=== PATIENT | female | born 1995 | race Caucasian/White ===

== ENCOUNTER 2021-09-18 07:20 | Inpatient (IN) ==
[2021-09-18] MEDS ORDERED: OXYTOCIN 30 UNITS/500 ML BAG IV PRN ×2 (10:48→19:32)
--- NOTE | 2021-09-18 11:09 | History & Physical Report ---
Date of Service September 18, 2021 Assessment & Plan (1) Supervision of normal intrauterine in multigravida: Plan: Mallory is a 26-year-old currently at 40 weeks 6 days gestational age presents in labor. Patient strongly desires and has previously signed consent form and which she reported understanding. We reiterated the risks of a /TOLAC most significantly the risk of uterine rupture at approximately 1%. discussed the range of uterine rupture that can present including a slight dehiscence of to a full uterine separation resulting and extrusion of the baby and placenta. Discussed that the more severe form of this would results in se jordan and maternal harm and potential . Questions answered patient's satisfaction. Strongly recommended epidural so that a urgent scan be performed more quickly if needed. fetus appears normal size on exam. 1. Fetus: Cat 1 2. Labor: Progressing 3. GBS negative 4. /TOLAC: Consent signed and risks reviewed 5. Vitals: WNL (2) Desires (vaginal after ) trial: History of Present Illness Primary Care Provider: NO PCP Mallory is a 26-year-old [id number] currently at 40 weeks 6 days gestational age presents in labor. Patient reporting contractions increasing in frequency and intensity. Denies leakage of fluid or vaginal bleeding. Of note patient has a prior Caesarean section for failure to descend after pushing for 3 hours. Patient strongly desires and previously signed consent form on 06/28/21. risks of once again reviewed today and discussed the risk of uterine rupture at approximately 1%. Discussed the range of types of rupture including catastrophic rupture which can result in severe harm in as well as maternal harm and . Patient reports that she signed the consent form and reiterated understanding of the consent form. Allergies Allergy/AdvReac Type Severity Reaction Status Date / Time No Known Allergies Allergy Verified 09/16/21 09:47 Home Medications Medication Instructions Recorded Confirmed Type prenat.vits,laura,ysd-yzlo-mhyuo 1 tab PO DAILY 01/28/21 09/18/21 History tdsvwqkbok-hinlaxyebqoph-wmadgamt 1 cap PO Q6H PRN #10 cap 08/09/21 09/18/21 Rx 50 mg-300 mg-40 mg capsule (Fioricet) ondansetron HCl 4 mg tablet 4 mg PO Q6H PRN #14 tab 08/09/21 09/18/21 Rx Patient History Medical History Classic migraine with aura History of COVID-19 04/2021>MODERATE SYMPTOMS *RESOLVED Surgical History Hx of section X 1 [place] teeth removed Family History (Updated 09/18/21 @ 07:27 by Ileana Mcclendon RN) Grandfather (Maternal) Family history of diabetes mellitus Grandfather (Paternal) Family history of diabetes mellitus Stroke Other Coronary heart disease Diabetes Dyslipidemia Hypertension No family history of adverse response to anesthesia Social History (Updated 01/28/21 @ 13:22 by Domonique Roblero) Smoking Status: Never smoker Second Hand Exposure: Yes (as a child); Hx Alcohol Use: No Hx Substance Use: No Preferred Language: [place] Communication Ability: Effective 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: No Beliefs That Will Affect Care: None marital status: marital status details: Tim (29) [phone] Current Living Situation: Spouse and Family Current Living Situation Comment: and 4 y/o daughter current occupational status: employed 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, Other Information That Helps Us Care for You: No Feels Safe at Home: Yes Safety Concerns: Feels Safe At This Time Assistive Devices: Glasses Physical Exam Genitourinary: normal external appearance OB Exam Abdomen: + vertex Manual OB Exam: + cervical dilation 4 cm, + cervical effacement 80% and + station -2 OB Exam Monitor Tracing: + external FHT monitor used, + external uterine monitor used, + category I and + normal FHT variability; no early decelerations present, no late decelerations present and no variable decelerations Results & Data ([facility] [place]) Vital Signs (Past 12 Hours) Vital Signs Temp Pulse Resp BP 09/18/21 10:55 104 H 134/87 09/18/21 07:38 98 H 117/79 09/18/21 07:30 36.9 C 18 Coding Level of Care Code None Diagnoses Supervision of normal intrauterine in multigravida Z34.80 Desires (vaginal after ) trial O34.219
[2021-09-18] MEDS: LACTATED RINGER'S 1,000 ML IV PRN ×2 (11:25→12:26)
[2021-09-18 11:36] LABS: Hematocrit (blood only) 36.7 % (37-47); Mean Corpuscular Hemoglobin 29.4 pg (25-34); Mean Corpuscular Hgb Conc 32.7 g/dL (32-36); Platelet Count 216 K/uL (130-400); RDW Coefficient of Variation 14.9 % (11.5-14.5); RDW Standard Deviation 48.6 fL (36.4-46.3); Red Blood Count 4.08 M/uL (4.2-5.4); White Blood Count 13.66 K/uL (4.8-10.8)
[2021-09-18] MEDS ORDERED: SODIUM CHLORIDE 0.9% INJ 10 ML VIAL ONE (11:41)
[2021-09-18] MEDS ORDERED: fentaNYL citrate 100 MCG/2 ML VIAL ONE (11:41)
[2021-09-18] MEDS ORDERED: ePHEDrine sulfate 50 MG/ML AMP ONE (11:41)
[2021-09-18] MEDS ORDERED: fentaNYL 2MCG/ML ROPIVACAINE 1.25MG/ML 100 ML BAG EPI ONE (11:42)
[2021-09-18] MEDS ORDERED: BUPIVACAINE 0.25% 30 ML VIAL ONE (11:42)
--- NOTE | 2021-09-18 12:56 | Labor Progress Brief Note ---
Date of Service September 18, 2021 Assessment & Plan (1) Supervision of normal intrauterine in multigravida: Plan: Mallory is a 26-year-old currently at 40 weeks 6 days gestational age presents in labor. Patient strongly desires and has previously signed consent form and which she reported understanding. We reiterated the risks of a /TOLAC most significantly the risk of uterine rupture at approximately 1%. discussed the range of uterine rupture that can present including a slight dehiscence of to a full uterine separation resulting and extrusion of the baby and placenta. Discussed that the more severe form of this would results in se jordan and maternal harm and potential . Questions answered patient's satisfaction. Strongly recommended epidural so that a urgent scan be performed more quickly if needed. fetus appears normal size on exam. 1. Fetus: Cat 1 2. Labor: Progressing well, AROM clr 3. GBS negative 4. /TOLAC: Consent signed and risks reviewed 5. Vitals: WNL (2) Desires (vaginal after ) trial: Admission and Anticipated Discharge Date Admission Date: September 18, 2021 Physical Exam Genitourinary: Manual OB Exam: + cervical dilation (5.5), + cervical effacement 80%, + station 0 and + amniotic fluid clear OB Exam Monitor Tracing: + external FHT monitor used, + external uterine monitor used, + category I and + normal FHT variability; no early decelerations present, no late decelerations present and no variable decelerations Results & Data ([facility]) Vital Signs (Past 12 Hours) Vital Signs Temp Pulse Resp BP Pulse Ox 09/18/21 12:51 94 H 100 09/18/21 12:48 111 H 127/74 09/18/21 12:46 85 100 09/18/21 12:41 77 100 09/18/21 12:40 98 H 126/75 09/18/21 12:36 84 99 09/18/21 12:34 90 131/76 09/18/21 12:31 88 98 09/18/21 12:30 92 H 130/75 09/18/21 12:26 88 99 09/18/21 12:24 88 133/71 09/18/21 12:22 88 132/71 09/18/21 12:21 90 100 09/18/21 12:20 81 127/73 09/18/21 12:18 88 129/73 09/18/21 12:16 95 H 135/73 100 09/18/21 12:14 88 135/88 09/18/21 12:11 83 134/80 100 09/18/21 12:06 84 100 09/18/21 12:00 36.6 C 09/18/21 10:55 104 H 134/87 09/18/21 07:38 98 H 117/79 09/18/21 07:30 36.9 C 18 Coding Level of Care Code None Diagnoses Supervision of normal intrauterine in multigravida Z34.80 Desires (vaginal after ) trial O34.219
[2021-09-18] MEDS ORDERED: fentaNYL 2MCG/ML ROPIVACAINE 1.25MG/ML 100 ML BAG EPI PRN (14:23)
[2021-09-18] MEDS ORDERED: ePHEDrine sulfate 50 MG/ML AMP IV PRN (14:23)
[2021-09-18] MEDS ORDERED: NALOXONE HCL 1 MG in SODIUM CHLORIDE 0.9% 1000ML 1,000 ML IV PRN (14:23)
[2021-09-18] MEDS ORDERED: ONDANSETRON INJ 2 MG/ML 2 ML VIAL IV PRN (14:23)
[2021-09-18] MEDS ORDERED: NALBUPHINE HCL INJ 10 MG/ML AMP IV PRN (14:23)
[2021-09-18] MEDS ORDERED: NALOXONE HCL 0.4 MG/1 ML VIAL/CARP IV PRN (14:23)
[2021-09-18] MEDS ORDERED: diphenhydrAMINE 50 MG/ML VIAL IV PRN (14:23)
--- NOTE | 2021-09-18 14:25 | Anesthesiology Consultation ---
Date of Service September 18, 2021 Assessment & Plan ASA ASA3 Proposed Anesthesia Anesthesia Type: Labor Epidural Risk / Benefits Reviewed With: PT / POA / Parent / Guardian, Accepts Plan and Informed Consent Obtained History Height/Weight Height: 5 ft 4 in Weight: 94.347 kg Allergies Allergy/AdvReac Type Severity Reaction Status Date / Time No Known Allergies Allergy Verified 09/16/21 09:47 Medications Home Medications Medication Instructions Recorded Confirmed Last Taken prenat.vits,laura,jzc-nkoh-zfrir 1 tab PO DAILY 01/28/21 09/18/21 09/17/21 08:00 bcqcflzisv-gxnkslhyedewm-vszftnwv 1 cap PO Q6H PRN #10 cap 08/09/21 09/18/21 Unknown 50 mg-300 mg-40 mg capsule (Fioricet) ondansetron HCl 4 mg tablet 4 mg PO Q6H PRN #14 tab 08/09/21 09/18/21 Unknown Active Medications Generic Name Dose Route Start Last Admin Trade Name Freq PRN Reason Stop Dose Admin Lactated Ringer's 1,000 mls @ 125 mls/hr 09/18/21 10:48 09/18/21 12:26 Lr IV 09/20/21 10:47 999 mls/hr .Q8H PRN Administration L&D Protocol Protocol Past Medical History Medical History Classic migraine with aura History of COVID-19 04/2021>MODERATE SYMPTOMS *RESOLVED Exercise / Class Metabolic Activity II 4-5 Yardwork/Stairs/Walk up hill Past Family History Family History (Updated 09/18/21 @ 07:27 by Ileana Mcclendon RN) Grandfather (Maternal) Family history of diabetes mellitus Grandfather (Paternal) Family history of diabetes mellitus Stroke Other Coronary heart disease Diabetes Dyslipidemia Hypertension No family history of adverse response to anesthesia Past Surgical History Surgical History Hx of section X 1 [place] teeth removed Past Anesthesia History No Hx of Anesthesia Complications and No Family Hx of Anesthesia Complications History of PONV No Hx of PONV and No Hx of Motion Sickness Social History Smoking Status: Never smoker Hx Alcohol Use: No Hx Substance Use: No substance use type: does not use Review of Systems denies fever/cough/ colds/ chest pain/ SOB/ DANIAL denies DANIAL Physical Exam Vital Signs Last Vital Signs Temp 36.7 C 09/18/21 14:13 Pulse 80 09/18/21 14:21 Resp 18 09/18/21 14:13 BP 138/79 09/18/21 14:11 Pulse Ox 97 09/18/21 14:21 ENMT Mouth: no TMJ abnormality and no dentition abnormality Thyromental Distance: > or= 3.5 Finger Breadths Mallampati Class: II Neck neck extension not limited Respiratory normal respiratory effort; no respiratory distress Auscultation: lungs clear to auscultation bilaterally Cardiovascular Rate/Rhythm: regular rate and regular rhythm Neurologic moves all extremities Psychiatric Orientation: alert and oriented x 3 Testing Laboratory Results 09/18/21 11:12 Blood Type A Positive 09/18/21 11:12 Antibody Screen NEGATIVE 09/18/21 11:12
--- NOTE | 2021-09-18 18:17 | Communication Note ---
Date of Service: September 18, 2021 pt c/o pain on left side and back. i bolused 6ml of 2% lidocaine with epi. pt vss. pt reports improvement in pain
[2021-09-18] MEDS ORDERED: miSOPROStoL 200 MCG TAB ONE (19:26)
[2021-09-18] MEDS ORDERED: METHYLERGONOVINE MALEATE 0.2 MG/ML AMP ONE (19:29)
[2021-09-18] MEDS ORDERED: bisacodyL 10 MG SUPP PR PRN (19:32)
[2021-09-18] MEDS ORDERED: miSOPROStoL 200 MCG TAB PR ONE (19:32)
[2021-09-18] MEDS ORDERED: HYDROCORTISONE ACETATE 25 MG SUPP PR PRN (19:32)
[2021-09-18] MEDS ORDERED: ACETAMINOPHEN 325 MG TAB PO PRN (19:32)
[2021-09-18] MEDS ORDERED: METHYLERGONOVINE MALEATE 0.2 MG/ML AMP IM ONE (19:32)
[2021-09-18] MEDS ORDERED: DIPHTHERIA/TETANUS/PERTUSSIS 0.5 ML SYR/VIAL IM ONE (19:32)
[2021-09-18] MEDS ORDERED: BENZOCAINE 20% AER SPR 82.5 GM CAN EXT PRN (19:32)
[2021-09-18] MEDS: IBUPROFEN 600 MG TAB PO PRN (21:48)
[2021-09-18] MEDS: DOCUSATE SODIUM 100 MG CAP PO SCH (21:49)
--- NOTE | 2021-09-18 22:57 | Anesthesia Procedure Note ---
Date of Service September 18, 2021 Anesthesia Post Epidural Note Vital Signs Vital Signs: Temp Pulse Resp BP Pulse Ox 37.0 C 90 18 122/72 99 09/18/21 19:07 09/18/21 21:29 09/18/21 21:30 09/18/21 21:29 09/18/21 19:07 Pain Intensity Abdomen: Pain Intensity: 6 Notes Mental Status: alert / awake / arousable Nausea / Vomiting: adequately controlled Pain: adequately controlled Airway Patency, RR, SpO2: stable & adequate BP & HR: stable & adequate Hydration State: stable & adequate Neuraxial Anesthesia: was administered and sensory block is resolving Anesthetic Complications: no major complications apparent and Pt Satisfied with anesthetic care Epidural: Removed without complications and With tip intact
--- NOTE | 2021-09-18 23:05 | Delivery Summary ---
DATE OF SERVICE: 09/18/2021 PROCEDURE: 1. Vaginal after section. 2. First-degree perineal laceration repair and bilateral periurethral laceration repairs. SURGEON: Nemesio Beavers MD. PREOPERATIVE DIAGNOSES: 1. Term at 40 weeks 6 days gestational age. 2. Prior section x1. 3. Desires trial of labor after section. POSTOPERATIVE DIAGNOSES: 1. Term at 40 weeks 6 days gestational age. 2. Prior section x1. 3. Desires trial of labor after section. 4. Status post delivery. ESTIMATED BLOOD LOSS: 400 mL. DRAINS: Straight cath at the completion of the case. URINE OUTPUT: 200 mL via straight cath. COMPLICATIONS: None. FINDINGS: Viable female infant with weight pending and Apgars of 8 and 8 at one and five minutes res pectively. INDICATIONS: Mallory is a 26-year-old G2, P1-0-0-1, at 40 weeks 6 days gestational age, presented in labor, desiring trial of labor after section. The patient was previously consented for and risks were reiterated prior to admission today. The patient progressed in labor well without an y augmentation. She did undergo artificial rupture of membranes for clear fluid and received an epid ural for anesthesia. The patient progressed to complete-complete, +1 station and began to push and p ushed for approximately 40-60 minutes to achieve delivery. DESCRIPTION OF PROCEDURE: The patient progressed to 10 cm dilated, 100% effaced, positive 1 station, pushed over intact perineum with epidural anesthesia and delivered a viable female , with weig ht and Apgars as noted above. Head of the delivered in SOUTH position, restituted to right tra nsverse. No nuchal cord noted. Body and shoulders quickly followed. was noted to have mode rate tone, but did not have spontaneous cry after delivery. The baby was stimulated and after about 30 seconds, the cord was double clamped and cut, and shortly afterwards, the baby became vigorous. C ord segment and cord blood were obtained. Attention was then turned to delivery of the placenta, whi ch was delivered intact, 3-vessel cord, gentle cord traction. On inspection of the perineum, vagina, cervix, there was noted to be a first-degree perineal laceration and bilateral periurethral lacerati ons. The perineal laceration was repaired with continuous running locked stitch of 3-0 Vicryl. Bila teral periurethrals were repaired with 3-0 Vicryl in an interrupted stitch. Needle, sponge, and inst rument counts were correct at the completion of the case. Both mother and are stable in the immediate post-delivery period. The patient received 800 mcg of Cytotec per rectum and one dose of M ethergine due to intermittent uterine atony after the delivery. Job ID: [id number]
[2021-09-19 06:29] LABS: Hematocrit (blood only) 30.9 % (37-47); Hemoglobin 10.1 g/dL (12.0-16.0); Mean Corpuscular Hgb Conc 32.7 g/dL (32-36); Mean Corpuscular Volume 88.8 fL (80-100); Mean Platelet Volume 9.6 fL (7.4-10.4); Platelet Count 181 K/uL (130-400); RDW Coefficient of Variation 15.1 % (11.5-14.5); RDW Standard Deviation 48.9 fL (36.4-46.3); Red Blood Count 3.48 M/uL (4.2-5.4); White Blood Count 14.83 K/uL (4.8-10.8)
--- NOTE | 2021-09-19 07:28 | Obstetrical Progress Note ---
Date of Service September 19, 2021 Assessment & Plan (1) Encounter for care and examination after delivery: day 1 s/p . Doing well. Routine care. Is stable for discharge after 24hrs if preferred by patient. Subjective Voiding: no voiding problems Passing Gas:: Yes Diet Tolerance:: regular diet Lochia:: Moderate Feeding Type:: breast feeding Physical Exam Constitutional WD/WN, vitals as above Respiratory normal respiratory effort; no respiratory distress and no labored breathing Gastrointestinal (Abdomen) Inspection/Auscultation: abdomen normal to inspection; abdomen not distended Percussion/Palpation: abdomen soft; abdomen nontender, no guarding and abdomen not rigid Genitourinary OB Exam Abdomen: + fundal height Fundus: + firm and + relation to umbilicus (Below); not tender or not boggy Results & Data ([facility]) Vital Signs (Past 12 Hours) Vital Signs Temp Pulse Pulse Resp BP BP Pulse Ox 09/19/21 04:00 36.6 C 77 16 108/70 09/18/21 23:30 37.2 C 86 20 120/77 96 09/18/21 21:30 18 09/18/21 21:29 90 122/72 09/18/21 21:01 104 H 120/60 09/18/21 21:00 18 09/18/21 20:30 18 09/18/21 20:26 101 H 131/71 09/18/21 20:15 18 09/18/21 20:11 100 H 127/70 09/18/21 20:00 18 09/18/21 19:45 18 09/18/21 19:41 100 H 151/68 H 09/18/21 19:30 18
[2021-09-19] MEDS: DOCUSATE SODIUM 100 MG CAP PO SCH ×2 (08:53→20:53)
[2021-09-19] MEDS: PRENATAL VITAMIN 1 TAB PO SCH (08:53)
[2021-09-19] MEDS: FERROUS SULFATE 325 MG TAB PO SCH (08:53)
[2021-09-19] MEDS ORDERED: bisacodyL 5 MG TABEC PO SCH (20:00)
[2021-09-19] MEDS: IBUPROFEN 600 MG TAB PO PRN (23:05)
[2021-09-20 06:19] LABS: Hematocrit (blood only) 31.5 % (37-47)
--- NOTE | 2021-09-20 07:17 | Obstetrical Progress Note ---
Date of Service September 20, 2021 Assessment & Plan (1) care and examination: stable, ready for dc home. instructions reviewed. f/u 6wks pp check. hgb noted and stable. rh pos, ri, . Subjective Ambulation: ambulating normally Voiding: no voiding problems Diet Tolerance:: regular diet Lochia:: Small Feeding Type:: breast feeding denies pain issues, pain control good Constitutional: + as per Subjective / HPI Physical Exam Constitutional WD/WN, vitals as above Respiratory normal respiratory effort, lungs clear to auscultation Cardiovascular Rate/Rhythm: regular rate and regular rhythm Gastrointestinal (Abdomen) Inspection/Auscultation: abdomen normal to inspection Percussion/Palpation: abdomen soft Fundus firm 2cm down Musculoskeletal nt calves no edema Neurologic grossly normal Psychiatric A+Ox3, euthymic affect Results & Data ([facility]) Vital Signs (Past 12 Hours) Vital Signs Temp Pulse Resp BP Pulse Ox 09/19/21 23:00 98.1 F 87 16 109/69 98
[2021-09-20] MEDS: FERROUS SULFATE 325 MG TAB PO SCH (08:23)
[2021-09-20] MEDS: PRENATAL VITAMIN 1 TAB PO SCH (08:23)
[2021-09-20] MEDS: DOCUSATE SODIUM 100 MG CAP PO SCH (08:23)
== END 2021-09-20 10:43 | disposition home or self-care (01) | DRG 807 ==
LOC: OPB 07:20 → 4S1 07:21 → 4E1 22:28